=== PATIENT | female | born 1940 | race Caucasian/White ===

== ENCOUNTER → 2016-12-13 | Outpatient (CLI) | payer MEDICARE, OTHER ==
[~2016-12-13] MED LIST: CALTRATE GUMMY1 EACH PO; HAIR, SKIN & N1 EACH PO; KRILL OIL 1,001 EAC1 PO; MOBIC15 MG PO; MOVE FREE JOIN1 EACH PO; OMEPRAZOLE40 MG PO; ONE-TABLET-DAI1 EACH PO; PRINIVIL (ZESTRI5 MG PO; RALOXIFENE HCL60 MG PO; VITAMIN C1000 MG PO; XANAX0.5 MG PO
== END | disposition disaster alternative care site (69) ==
LOC: GBCOE 14:12
DX: M16.9 Osteoarthritis of hip, unspecified (principal); M85.88 Other specified disorders of bone density and structure, other site